=== PATIENT | female | born 1955 | race Hispanic/Latino ===

== ENCOUNTER 2018-10-26 19:39 | Observation (INO) | payer BC, OTHER ==
[~2018-10-26] VITALS: Ht 149.9 cm; Wt 95.8 kg
[2018-10-26 13:54] VITALS: BP 175/74
[~2018-10-26 19:39] MED LIST: AMBIEN5 MG PO; ATORVASTATIN CA20 MG PO; CENTRUM SILVER1 EAC3 PO; FLAGYL500 MG PO; LEVAQUIN500 MG PO; METAMUCIL PACK1 EACH PO; METFORMIN HCL500 MG PO; NFD30TCR PO; OMEGA-31000 MG PO; OMEPRAZOLE40 MG PO; POTASSIUM CHLO10 ME1 PO; PROTONIX40 MG PO; VITAMIN D3400 UNIT PO
[2018-10-26] MEDS ORDERED: ASPIRIN 81 MG CHEW TAB PO ONE (20:00)
[2018-10-26 20:25] LABS: BASOPHILS # (AUTO) 0.1 (0.0-0.1); BASOPHILS % 0.6 % (0.0-1.0); EOSINOPHILS # (AUTO) 0.2 (0.0-0.4); EOSINOPHILS % 2.3 % (0.0-6.0); HEMATOCRIT 33.7 % (34.2-44.1); HEMOGLOBIN 11.5 g/dL (12.0-16.0); LYMPHOCYTES # (AUTO) 3.1 (1.0-3.2); LYMPHOCYTES % 36.1 % (18.0-39.1); MEAN CORPUSCULAR HEMOGLOBIN 31.2 pg (28-32); MEAN CORPUSCULAR HGB CONC 34.1 g/dL (31-35); MEAN CORPUSCULAR VOLUME 91.3 fL (81-99); MONOCYTES # (AUTO) 0.5 (0.2-0.8); MONOCYTES % 5.5 % (4.4-11.3); NEUTROPHILS # (AUTO) 4.7 (2.1-6.9); NEUTROPHILS % 55.1 % (38.7-80.0); PLATELET COUNT 319 x10e3/uL (140-360); RED BLOOD COUNT 3.69 x10e6/uL (3.6-5.1); RED CELL DISTRIBUTION WIDTH 12.5 % (11.7-14.4)
[2018-10-26 20:29] LABS: INR 0.92; PARTIAL THROMBOPLASTIN TIME 25.6 seconds (23.8-35.5); PROTHROMBIN TIME 13.2 seconds (11.9-14.5)
[2018-10-26 20:40] LABS: ALANINE AMINOTRANSFERASE 16 IU/L (0-55); ALBUMIN 3.4 g/dL (3.5-5.0); ALBUMIN/GLOBULIN RATIO 0.9 (0.8-2.0); ALKALINE PHOSPHATASE 59 IU/L (40-150); ANION GAP 13.2 mmol/L (8-16); BLOOD UREA NITROGEN 25 mg/dL (7-26); BUN/CREATININE RATIO 28 (6-25); CALCIUM 9.3 mg/dL (8.4-10.2); CARBON DIOXIDE 26 mmol/L (22-29); CHLORIDE 103 mmol/L (98-107); CREATINE KINASE 33 IU/L (29-168); CREATININE, SERUM 0.88 mg/dL (0.57-1.11); EST GLOMERULAR FILTRATION RATE > 60 ML/MIN (60-); GLUCOSE 116 mg/dL (74-118); MAGNESIUM 1.3 MG/DL (1.3-2.1); POTASSIUM 4.2 mmol/L (3.5-5.1); SODIUM 138 mmol/L (136-145)
[2018-10-26 20:54] LABS: BILIRUBIN,URINE NEGATIVE (NEGATIVE); CLARITY,URINE CLEAR (CLEAR); COLOR,URINE YELLOW (YELLOW); KETONES,URINE NEGATIVE (NEGATIVE); LEUKOCYTE ESTERASE ,URINE NEGATIVE (NEGATIVE); NITRITE,URINE NEGATIVE (NEGATIVE); PROTEIN,URINE DIPSTICK 1+ (NEGATIVE); URINE UROBILINOGEN 0.2 mg/dL (0.2 - 1)
[2018-10-26] MEDS ORDERED: SODIUM CHLORIDE 0.9% 1000ML 1,000 ML IV STA (21:06)
[2018-10-26 21:10] LABS: EPITHELIAL CELLS,URINE FEW /LPF; WBC,URINE (MAN) 0-5 /HPF (0-5)
[2018-10-26] MEDS ORDERED: PANTOPRAZOLE 40 MG 10ML VIAL IV ONE (21:15)
--- NOTE | 2018-10-26 21:16 | Diagnostic Imaging Report ---
EXAM: CHEST SINGLE (PORTABLE), AP 1 view INDICATION: Chest pain COMPARISON: AP view of the chest January 29, 2015 FINDINGS: LINES/TUBES: None LUNGS: No consolidations or edema. PLEURA: No effusions or pneumothorax. HEART AND MEDIASTINUM: Normal size and contour. BONES AND SOFT TISSUES: No acute findings. IMPRESSION: No acute thoracic abnormality. Signed by: Dr. Ariela Jha M.D. on 10/26/2018 9:13 PM
[2018-10-26] MEDS ORDERED: ENOXAPARIN SODIUM INJ 100 MG/ML SYR SC ONE (22:00)
--- NOTE | 2018-10-26 22:03 | Diagnostic Imaging Report ---
EXAM: CT CHEST W INDICATION: Shortness of breath and positive d-dimer COMPARISON: None TECHNIQUE: Multidetector CT scanning of the chest was performed. Coronal and sagittal multiplanar reformations were obtained. Dose modulation, iterative reconstruction, and/or weight based adjustment of the mA/kV was utilized to reduce the radiation dose to as low as reasonably achievable. PE protocol performed. IV Contrast: 100 cc Isovue-370 CTDIvol has been reviewed. It is below the limits set by the Radiation Protocol Committee (RPC). FINDINGS: LUNGS AND AIRWAYS: The trachea and major bronchi are unremarkable. Bilateral mosaic attenuation of the lungs, most likely related to air trapping. At the medial aspect of the right lung base there is a 1.2 cm consolidation/nodule. PLEURA: No effusions or pneumothorax. HEART, MEDIASTINUM, VESSELS: Mild cardiac enlargement. No abnormal pericardial effusion. Atherosclerotic changes of the thoracic aorta without aneurysm. No mediastinal mass or lymphadenopathy. The main pulmonary artery is within normal size limits. No evidence of a pulmonary embolism. UPPER ABDOMEN: Cholecystectomy. MUSCULOSKELETAL: No acute findings. Severe degenerative changes of the left shoulder. IMPRESSION: 1. No evidence of a pulmonary embolism. 2. At the medial aspect of the right lung base there is an approximately 1.2 cm consolidation/sub-solid nodule. This is indeterminate for being from prior pneumonia or a potential cancer. A follow-up CT of the chest without IV contrast, low-dose protocol is recommended in 3 months if there are no prior CTs at an outside facility available for comparison. Signed by: Dr. Ariela Jha M.D. on 10/26/2018 10:00 PM
[2018-10-26] MEDS ORDERED: METOPROLOL TART50 MG PO (22:23)
[2018-10-26] MEDS ORDERED: ZOLPIDEM TARTRAT5 MG PO (22:23)
[2018-10-26] MEDS ORDERED: FAMOTIDINE 20 MG/2 ML VIAL IV SCH (23:00)
--- OUTSIDE RECORDS SUMMARY | 2018-10-26 23:51 | XMS REPORT ---
Author Author [facility] Address Unknown Phone Unavailable Care Team Providers Care Building Principal Name Role Phone Lexi JEFFREY Unavailable Unavailable Problems This patient has no known problems. Allergies, Adverse Reactions, Alerts This patient has no known allergies or adverse reactions. Medications This patient has no known medications. Results Test Description Test Time Test Comments Text Results Atomic Results Result Comments CT CHEST W 2018-10-26 21:50:00 [facility] [address] [address] Patient Name: NIKOS MOISE MR #: [id number] : 1955 Age/Sex: 62/F Req #: [id number] Adm Physician: Ordered by: RACHEL JEFFREY MD Report #: [id number] Location: ER Room/Bed: Procedure: [id number] CT/CT CHEST W Exam Date: 10/26/18 Exam Time: 2120 REPORT STATUS: Signed EXAM: CT CHEST W INDICATION: Shortness of breath and positive d- dimer COMPARISON: None TECHNIQUE: Multidetector CT scanning of the chest was performed. Coronal and sagittal multiplanar reformations were obtained. Dose modulation, iterative reconstruction, and/or weight based adjustment of the mA/kV was utilized to reduce the radiation dose to as low as reasonably achievable. PE protocol performed. IV Contrast: 100 cc Isovue-370 CTDIvol has been reviewed. It is below the limits set by the Radiation Protocol Committee (RPC). FINDINGS: LUNGS AND AIRWAYS: The trachea and major bronchi are unremarkable. Bilateral mosaic attenuation of the lungs, most likely related to air trapping. At the medial aspect of the right lung base there is a 1.2 cm consolidation/nodule. PLEURA: No effusions or pneumothorax. HEART, MEDIASTINUM, VESSELS: Mild cardiac enlargement. No abnormal pericardial effusion. Atherosclerotic changes of the thoracic aorta without aneurysm. No mediastinal mass or lymphadenopathy. The main pulmonary artery is within normal size limits. No evidence of a pulmonary embolism. UPPER ABDOMEN: Cholecystectomy. MUSCULOSKELETAL: No acute findings. Severe degenerative changes of the left shoulder. IMPRESSION: 1. No evidence of a pulmonary embolism. 2. At the medial aspect of the right lung base there is an approximately 1.2 cm consolidation/sub-solid nodule. This is indeterminate for being from prior pneumonia or a potential cancer. A follow- up CT of the chest without IV contrast, low-dose protocol is recommended in 3 months if there are no prior CTs at an outside facility available for comparison. Signed by: Dr. Marilu Be M.D. on 10/26/2018 10:00 PM Dictated By: MARILU BE MD 99 Transcribed By: MONROE on 10/26/182199 COPY TO: RACHEL JEFFREY MD CHEST SINGLE (PORTABLE) 2018-10-26 21:12:00 [address] [address] Patient Name: NIKOS MOISE MR #: [id number] : 1955 Age/Sex: 62/F Req #: [id number] Adm Physician: Ordered by: RACHEL JEFFREY MD Report #: [id number] Location: ER Room/Bed: Procedure: [id number] DX/CHEST SINGLE (PORTABLE) Exam Date: 10/26/18 Exam Time: 2010 REPORT STATUS: Signed EXAM: CHEST SINGLE (PORTABLE), AP 1 view INDICATION: Chest pain COMPARISON: AP view of the chest January 29, 2015 FINDINGS: LINES/TUBES: None LUNGS: No consolidations or edema. PLEURA: No effusions or pneumothorax. HEART AND MEDIASTINUM: Normal size and contour. BONES AND SOFT TISSUES: No acute findings. IMPRESSION: No acute thoracic abnormality. Signed by: Dr. Marilu Be M.D. on 10/26/2018 9:13 PM Dictated By: MARILU BE MD 12 Transcribed By: MONROE on 10/26/182112 COPY TO: RACHEL JEFFREY MD
[2018-10-27] VITALS (19 sets, daily range): BP systolic 142–192; BP diastolic 68–139
[2018-10-27] MEDS: ONDANSETRON HCL INJ 2 MG/ML VIAL IV PRN ×2 (01:43→18:03)
[2018-10-27] MEDS: MORPHINE SULFATE 2 MG/ML SYR IV PRN ×3 (01:50→23:17)
[2018-10-27] MEDS ORDERED: SODIUM CHLORIDE 0.9% 1000ML 1,000 ML IV SCH (04:45)
[2018-10-27 05:00] LABS: CHOL/HDL RATIO 6.4 (3.0-3.6)
[2018-10-27 05:23] LABS: CREATINE KINASE MB 0.6 ng/mL (0-5.0)
[2018-10-27] MEDS ORDERED: SODIUM CHLORIDE 0.9% 50ML 50 ML ONE ×2 (07:04→19:06)
[2018-10-27] MEDS ORDERED: IOPAMIDOL 370 MG/ML 200 ML INFUS..BTL INJ ONE ×3 (07:04→19:01)
[2018-10-27] MEDS ORDERED: DEXTROSE 50% SYRINGE 50 ML IV PRN (07:15)
[2018-10-27] MEDS: INSULIN LISPRO 100 UNIT/1 ML 3ML VIAL SQ SCH ×4 (07:56→22:20)
[2018-10-27] MEDS ORDERED: ASPIRIN 81 MG ENTERIC COATED PO SCH (09:00)
[2018-10-27] MEDS ORDERED: METOPROLOL SUCCINATE 50 MG TAB XL PO NR (11:45)
[2018-10-27] MEDS: SODIUM CHLORIDE 0.9% 1000ML 1,000 ML IV SCH ×3 (13:32→21:00)
[2018-10-27] MEDS: PANTOPRAZOLE SODIUM 40 MG SUSPDR.PKT PO SCH ×2 (13:33→15:21)
--- NOTE | 2018-10-27 13:58 | Consultation ---
DATE OF CONSULTATION: October 27, 2018 REASON FOR CONSULTATION: Chest pain. This is a 62-year-old female with a history of diabetes, hypertension, reflux, and insomnia. Patient presents to Patients ER with complaints of chest pain times 1 week. However, on Tuesday the chest pain became constant, pressure in nature with some shortness of breath. Cardiology was consulted to evaluate the patient. Patient was seen in the ER. Reports the chest pain started about a week ago when she was on vacation and states that it is pressure sensation, worse with exertion. However, on Tuesday reports chest pain became constant pressure worse with deep breathing. Therefore, came to the ER for further evaluation. Initial enzymes negative times 2. EKG sinus rhythm with right bundle branch block. CT was done PE protocol, which was negative. Echo has been ordered and is pending. Of note, the patient had a heart cath several years ago with normal coronaries. Patient is very concerned and is wanting further evaluation given her strong family history of heart disease. PAST MEDICAL HISTORY: Diabetes, hypertension, GERD, and insomnia. SURGICAL HISTORY: Hysterectomy, cholecystectomy, umbilical hernia, appendectomy. FAMILY HISTORY: Mother at age 92 apparently with uterine cancer. Father in his 50s apparently from [place]. SOCIAL HISTORY: She is . She has 2 children. Reports they are healthy. No alcohol use. No tobacco use. HOME MEDICATIONS 1. Protonix 40 mg once a day. 2. Metformin 500 mg t.i.d. 3. Ambien p.r.n. 4. Nifedipine 30 mg once a day. ALLERGIES: LISINOPRIL. REVIEW OF SYSTEMS GENERAL: Denies any weight changes, any fevers, chills, night sweats, or any skin contacts. SKIN: No rashes or sores. HEENT: No nausea, vomiting, vision changes, blurred vision, double vision, tinnitus, earaches, epistaxis. CARDIAC: Positive for chest pain. Positive for dyspnea on exertion worsening of several days. Denies any orthopnea, PND, intermittent lower extremity edema. RESPIRATORY: Positive shortness of breath. No hemoptysis. GI: Good appetite. No nausea. No vomiting. No diarrhea. No constipation. Denies any melena or hematochezia. URINARY: Denies any frequency, urgency, nocturia, or dysuria. VASCULAR: Reports intermittent lower extremity edema, left greater than right. Denies any claudication also. MUSCULOSKELETAL: Denies any back pain. However, generalized joint pains. NEUROLOGIC: Denies any tingling, tremors, paralysis, blackouts, seizures. HEMATOLOGY: Denies anemia, any bruising. ENDOCRINE: Denies any heat or cold intolerance, any polyuria, polydipsia, or polyphagia. PHYSICAL EXAMINATION VITALS: Height 59 inches, weight 208 pounds. BMI 42. Vital signs currently are heart rate 70, temperature 98.4, respiratory rate 18, blood pressure 126/50, pulse ox 100%, on room air. GENERAL: Appears stated age and reliable informant. In no acute distress. SKIN: No rashes or bruises noted. HEENT: Normocephalic. Pupils are equal and reactive. Extraocular motor intact. Trachea midline. No thyromegaly noted. No JVD. No carotid bruits. Oral mucosa pink. HEART: Regular rate and rhythm. LUNGS: Bilateral breath sounds clear to auscultation. ABDOMEN: Soft, nontender and nondistended. No organomegaly. However, the patient is very obese. EXTREMITIES: Muscle tone and good muscle strength throughout. VASCULAR: Plus 2 bilateral radial pulses and +1 DP and PT pulses bilaterally. NEUROLOGIC: Cranial nerves II-XII seem intact. LABS: Hemoglobin 11, hematocrit 33 and platelets 319,000. Sodium 138, potassium 4.2, chloride 103, BUN 25, creatinine 0.8. Troponin 0.036, next 0.018. BNP 98. EKG is normal sinus rhythm with right bundle branch block. Chest x-ray with no PE. However, showing a right lower lung base 1.2-cm nodule. Chest x-ray with no acute abnormalities noted. ASSESSMENT AND PLAN 1. Chest pain. 2. Pulmonary nodule. 3. Diabetes. 4. Obesity. 5. Hyperlipidemia. PLAN: The patient presents with chest pain for about a week. Now, reports it is constant with mixed features. Enzymes negative times 2 thus far and EKG without any acute changes suggestive of acute event. The patient is requesting further evaluation. Patient very concerned. Will proceed with a stress test to evaluate further. has been ordered and will be reviewed by cardiology attending. The patient is aware of the CT report and copy has been given to the patient in which she was advised to follow up as recommended. Continue home medications. Further recommendations as clinical course dictates. Thank you very much for this consult. DICTATED BY TRACY STAUFFER NP Seen and evaluated Agree with note Since enzymes are negative , we will do stress test Stress test is positive with chest pain at 2 minutes of excercise ===> will schedule cardiac cath / PCI, Job#: [id number] RI MTDD
[2018-10-27] MEDS ORDERED: HEPARIN SOD/SOD CHLORIDE 2,000 ML ONE (17:54)
[2018-10-27] MEDS ORDERED: LIDOCAINE HCL 2% LOCAL 20 ML VIAL ONE (17:54)
[2018-10-27] MEDS ORDERED: MIDAZOLAM HCL 2 MG/2 ML VIAL ONE (18:03)
[2018-10-27] MEDS ORDERED: FENTANYL CITRATE/PF 100MCG/2 ML INJ ONE (18:03)
[2018-10-27] MEDS ORDERED: VERAPAMIL HCL 2.5 MG/ML 2 ML VIAL ONE (18:36)
[2018-10-27] MEDS ORDERED: BIVALRIUDIN 250 MG/VIAL VIAL IV ONE (19:06)
[2018-10-27] MEDS ORDERED: CLOPIDOGREL BISULFATE 75 MG TAB ONE (19:07)
[2018-10-27] MEDS ORDERED: ASPIRIN 325 MG TAB ONE (19:07)
[2018-10-27] MEDS ORDERED: HYDRALAZINE HCL 20 MG/ML VIAL ONE (19:23)
[2018-10-27] MEDS ORDERED: EPTIFIBATIDE 20 ML ONE (19:31)
[2018-10-27] MEDS ORDERED: EPTIFIBATIDE 100 ML ONE (19:34)
[2018-10-27] MEDS ORDERED: ONDANSETRON HCL INJ 2 MG/ML VIAL IV PRN (20:15)
[2018-10-27] MEDS ORDERED: ACETAMINOPHEN 325 MG TAB PO PRN (20:15)
[2018-10-27] MEDS ORDERED: EPTIFIBATIDE 100 ML IV ONE (20:15)
[2018-10-27] MEDS ORDERED: CLONIDINE HCL 0.1 MG TAB PO PRN (20:15)
[2018-10-27] MEDS ORDERED: EPTIFIBATIDE 2 MG/1 ML 10ML VIAL IV ONE (20:15)
[2018-10-27] MEDS ORDERED: HYDROCODONE/APAP 5MG-325MG TAB PO PRN (20:15)
[2018-10-27] MEDS ORDERED: PROMETHAZINE 12.5MG/ NACL 0.9% 12.5 MG/50 ML BAG IV PRN (20:45)
[2018-10-27] MEDS ORDERED: NON-FORMULARY MEDICATION (Zolpidem Tartrate 5 MG) PO SCH (21:00)
[2018-10-27] MEDS ORDERED: ATORVASTATIN 20 MG TAB PO SCH ×2 (21:00)
[2018-10-27] MEDS ORDERED: ZOLPIDEM TARTRATE 5 MG TAB PO SCH (21:00)
--- NOTE | 2018-10-27 22:29 | Cardiology Report ---
DATE OF STUDY: October 27, 2018 EXERCISE TREADMILL STRESS TEST INDICATION FOR STUDY: Chest pain, escalating symptoms concerning for perhaps unstable angina. TECHNICAL DETAILS: After risks, benefits, pros and cons of today's exercise treadmill stress test were explained to the patient, the patient agreed to proceed. Patient was brought to the stress lab where 12-lead EKG monitoring and blood pressure monitoring were obtained. She exercised on a Daniel protocol for a total duration of 1 minute and 50 seconds and had to be terminated sub-max due to severe onset of chest pain, pressure similar to presenting complaint. Underlying EKG revealed normal sinus rhythm, right bundle branch block, and heart rate increased from a baseline of 79 beats per minute to a maximum of 98 beats per minute well below our target heart rate goal. Blood pressure was only obtained at baseline, which was noted to be 126/78. Repeat blood pressure was not done during exercise. At the end of stress test, patient had borderline ST depressions in V5-V6 and again intense chest pain typical of angina. CONCLUSION 1. Abnormal exercise treadmill stress test, sub-max protocol, with the development of typical chest pain symptoms concerning for angina, which brought her into the hospital. 2. Borderline ischemic EKG changes and a very sub-max stress test. 3. In light of high risk features, we will proceed with cardiac catheterization. Job#: [id number] DIVYA
[2018-10-28] VITALS (38 sets, daily range): BP systolic 87–169; BP diastolic 57–93
--- NOTE | 2018-10-28 02:59 | Operative Report ---
DATE OF PROCEDURE: CARDIAC CATHETERIZATION INTERVENTION PROCEDURES PERFORMED 1. Left heart cardiac catheterization with coronary angiography. 2. Percutaneous coronary intervention with drug-eluting stent placement to the prox-mid LAD culprit lesion. INDICATION FOR PROCEDURE: A 62-year-old morbidly obese lady who presents to this institution with chest pain symptoms concerning for unstable angina. She underwent exercise treadmill stress test and was significantly positive and very sub-max protocol with poor exercise tolerance and hence a high risk stress test. We decided to proceed for definite ischemic evaluation. DESCRIPTION OF PROCEDURE: After risks, benefits, pros and cons of today's procedure were explained, patient agreed to proceed. Patient was brought to the cardiac catheterization laboratory, where the right wrist was prepped and draped in the usual sterile fashion. Lidocaine solution 1% was used to numb the right wrist region. Access to the right radial artery was obtained and a long 5-Pakistani Terumo Glidesheath was placed. After the sheath was placed, we gave intra-arterial verapamil 2.5 mg and nitroglycerin 200 mcg through the sheath and 3000 units of intra-arterial heparin was given. Selective coronary angiography of the citizen [place] left and right coronary arteries was performed with 5-Pakistani Jose 4.0 diagnostic catheter. This revealed a short left main, dual origin LAD and circumflex artery with a posterior takeoff and there was interestingly a 70% to 80% hazy prox-mid LAD stenosis concerning for acute thrombotic stenosis and clear cut culprit artery. We decided to proceed with intervention. A 5-Pakistani radial sheath was upsized to a 6-Pakistani slender radial sheath. IV Angiomax bolus was given for systemic anticoagulation, patient was loaded with aspirin and Plavix and Integrilin boluses were given as well. We went ahead with a 6-Pakistani XP 3.5 LAD guiding catheter and selected the LAD artery. Utilizing a 300 cm [place] XT Guidewire was successfully crossed into the apical all the way into the distal LAD well passed the lesion. We went in with a direct stenting strategy with a Synergy 3.0 x 20 mm drug-eluting stent. We deployed up to 17 atmospheres of pressure. Final angiography revealed 0% residual stenosis NOLA III flow and no complications. At the conclusion of the case, the guiding catheter was removed with a J-wire and a Terumo TR band was successfully deployed utilizing patent hemostasis technique and a total of 14 mL of air was placed. COMPLICATIONS: None. ESTIMATED BLOOD LOSS: Minimal. FINDINGS 1. Left main is very short, gives rise to an LAD and circumflex branch and is angiographically normal. 2. LAD has a long hazy 70% to 80% prox-mid stenosis which terminates into a bifurcating LAD diagonal and first septal sfdc architect branch. The remainder of this vessel and its branches with just mild luminal irregularities. 3. Left circumflex artery is a large codominant, gives rise to a large anterolateral marginal branch, two moderate caliber marginal branches and a large posterolateral/left PDA branch. This vessel and its branches were with just mild luminal irregularities. 4. RCA is dominant, has a little anterior takeoff, gives rise to a right PDA and right PLV branch. There was a 40% mid RCA stenosis. INTERVENTION SUMMARY: Successful treatment of the 70% to 80% hazy prox-mid LAD thrombotic lesion with implantation of a Synergy 3.0 x 20 drug-eluting stent resulting in 0% residual stenosis NOLA III flow and no complications. PLAN/RECOMMENDATIONS 1. Aspirin and Plavix therapy. 2. Statin therapy. 3. Recommend just aggressive risk-factor modification medical therapy. 4. Integrilin infusion. 1. Removal of TR band in approximately 2 hours. Job#: [id number] VAS
[2018-10-28 04:56] LABS: BASOPHILS # (AUTO) 0.1 (0.0-0.1); BASOPHILS % 0.6 % (0.0-1.0); EOSINOPHILS # (AUTO) 0.2 (0.0-0.4); EOSINOPHILS % 1.8 % (0.0-6.0); HEMATOCRIT 29.8 % (34.2-44.1); HEMOGLOBIN 10.1 g/dL (12.0-16.0); LYMPHOCYTES # (AUTO) 2.2 (1.0-3.2); LYMPHOCYTES % 26.2 % (18.0-39.1); MEAN CORPUSCULAR HEMOGLOBIN 31.5 pg (28-32); MEAN CORPUSCULAR HGB CONC 33.9 g/dL (31-35); MEAN CORPUSCULAR VOLUME 92.8 fL (81-99); MONOCYTES # (AUTO) 0.5 (0.2-0.8); MONOCYTES % 5.6 % (4.4-11.3); NEUTROPHILS # (AUTO) 5.4 (2.1-6.9); NEUTROPHILS % 65.3 % (38.7-80.0); PLATELET COUNT 264 x10e3/uL (140-360); RED BLOOD COUNT 3.21 x10e6/uL (3.6-5.1); RED CELL DISTRIBUTION WIDTH 12.6 % (11.7-14.4)
[2018-10-28 05:30] LABS: ALANINE AMINOTRANSFERASE 14 IU/L (0-55); ALBUMIN/GLOBULIN RATIO 0.9 (0.8-2.0); ALKALINE PHOSPHATASE 55 IU/L (40-150); BLOOD UREA NITROGEN 16 mg/dL (7-26); BUN/CREATININE RATIO 22 (6-25); CALCIUM 8.3 mg/dL (8.4-10.2); CARBON DIOXIDE 24 mmol/L (22-29); CHLORIDE 109 mmol/L (98-107); CREATININE, SERUM 0.72 mg/dL (0.57-1.11); EST GLOMERULAR FILTRATION RATE > 60 ML/MIN (60-); GLUCOSE 106 mg/dL (74-118); SODIUM 140 mmol/L (136-145)
[2018-10-28] MEDS: SODIUM CHLORIDE 0.9% 1000ML 1,000 ML IV SCH (06:05)
[2018-10-28] MEDS: INSULIN LISPRO 100 UNIT/1 ML 3ML VIAL SQ SCH ×2 (07:30→11:30)
[2018-10-28] MEDS ORDERED: PANTOPRAZOLE SODIUM 40 MG SUSPDR.PKT PO SCH (07:30)
[2018-10-28] MEDS: PANTOPRAZOLE SODIUM 40 MG SUSPDR.PKT PO SCH (08:01)
[2018-10-28] MEDS ORDERED: METOPROLOL TARTRATE 50 MG TAB PO SCH (09:00)
[2018-10-28] MEDS ORDERED: CLOPIDOGREL BISULFATE 75 MG TAB PO SCH (09:00)
[2018-10-28] MEDS ORDERED: METOPROLOL SUCCINATE 50 MG TAB XL PO SCH (09:00)
[2018-10-28] MEDS ORDERED: ASPIRIN 325 MG TAB PO SCH (09:00)
[2018-10-28] MEDS ORDERED: CLOPIDOGREL75 MG PO (09:55)
[2018-10-28] MEDS ORDERED: METOPROLOL TART50 MG PO (09:55)
[2018-10-28] MEDS ORDERED: ATORVASTATIN CA20 MG PO (09:55)
[2018-10-28] MEDS ORDERED: ASPIRIN81 MG PO (09:55)
[2018-10-28] MEDS ORDERED: POTASSIUM CHLORIDE 20 MEQ TAB CR PO SCH (12:00)
--- NOTE | 2018-10-28 13:12 | Discharge Summary ---
PRIMARY CARE DOCTOR: Dr. Grzegorz Mahmood with [facility]. FINAL DIAGNOSIS: Unstable angina with coronary artery disease. SECONDARY DIAGNOSES 1. Diabetes. 2. Lung nodule. 3. Morbid obesity. 4. Hypertriglyceridemia with triglyceride of 240. AGRICULTURAL ECONOMIST: Dr. Mancia, cardiology. PROCEDURES/STUDIES PERFORMED CT of the chest with IV contrast. Stress test. Echocardiogram. Left heart cath. HISTORY: Per [facility] HOSPITAL COURSE: Patient was admitted. CT scan was done, which was negative for PE. However, there is a 1.2 mm nodule. I have printed the report out and she supposed to give it to her primary care doctor for followup. The recommendation is to repeat another CAT scan in 3 months. Patient did not have an acute myocardial infarction. Her troponins were negative. Patient underwent stress test, which was normal; therefore subsequently, patient underwent left heart cath through her right radial artery. A drug-eluting stent was placed in her LAD. Patient is to go home today on aspirin, Plavix, metoprolol, and Lipitor. Patient will follow up with her PCP in 1 week. I have updated her PCP about this hospitalization. Patient was seen and examined today. It took 32 minutes total to discharge this patient. CONDITION ON DISCHARGE: Stable. DISCHARGE MEDICATIONS: Please see medication reconciliation form. SAMANTHA MCKEON M.D. Job#: [id number] SEVEN cc:GRZEGORZ MAHMOOD MD
[2018-10-28] MEDS ORDERED: AMIODARONE HCL 200 MG TAB PO SCH (17:00)
== END 2018-10-28 14:26 | disposition home or self-care (01) ==
LOC: ER 19:39 → ERHOLD 23:00 → IMCU 10-27 13:55 → ICU 10-27 20:34
PROVIDERS: ADMIT Internal Medicine; ATTEND Internal Medicine
DX: I25.110 Atherosclerotic heart disease of native coronary artery with unstable angina pectoris (principal); I34.0 Nonrheumatic mitral (valve) insufficiency; I07.1 Rheumatic tricuspid insufficiency; I37.1 Nonrheumatic pulmonary valve insufficiency; I10 Essential (primary) hypertension; R91.1 Solitary pulmonary nodule; K21.9 Gastro-esophageal reflux disease without esophagitis; E11.9 Type 2 diabetes mellitus without complications; Z79.84 Long term (current) use of oral hypoglycemic drugs; E78.1 Pure hyperglyceridemia; E66.01 Morbid (severe) obesity due to excess calories; Z68.41 Body mass index [BMI] 40.0-44.9, adult; G47.00 Insomnia, unspecified; E78.5 Hyperlipidemia, unspecified; Z79.02 Long term (current) use of antithrombotics/antiplatelets; Z88.8 Allergy status to other drugs, medicaments and biological substances
CPT/HCPCS: 36415 ×3; 71045; 71260; 80053 ×2; 80061; 81001; 82550 ×2; 82553 ×2; 82948 ×2; 83735; 83880; 84484 ×2; 85025 ×2; 85379; 85610; 85730; 87086; 92928; 93005; 93017; 93306; 93458; 96372; 99284; C1769; C1874; G0378 ×3; J0360; J0583; J1327 ×2; J1650; J2001; J2250; J2270; J2405; J2550; J7030 ×3; Q9967

== ENCOUNTER → 2022-01-29 | Outpatient (CLI) | payer MEDICARE ==
[~2022-01-29] MED LIST changes: +ASPIRIN81 MG PO; +CLOPIDOGREL75 MG PO; +METOPROLOL TART50 MG PO; +ZOLPIDEM TARTRAT5 MG PO
== END ==
LOC: MAMMO 08:43
PROVIDERS: ATTEND Family Medicine
DX: Z12.31 Encounter for screening mammogram for malignant neoplasm of breast (principal)
CPT/HCPCS: 77067

== ENCOUNTER 2024-08-26 16:30 | Emergency (ER) | payer MEDICARE ==
[~2024-08-26] VITALS: Ht 144.8 cm; Wt 90.7 kg
[2024-08-26 16:49] VITALS: TEMP 98.1
[2024-08-26] MEDS ORDERED: ROSUVASTATIN CA20 MG (17:17)
[2024-08-26] MEDS ORDERED: POTASSIUM99 M2 (17:17)
[2024-08-26] MEDS ORDERED: OMEGA 3-6-9 11200 M1 (17:17)
[2024-08-26] MEDS ORDERED: LOSARTAN POTASS25 MG PO (17:17)
[2024-08-26] MEDS ORDERED: COQ1050 MG PO (17:17)
[2024-08-26] MEDS ORDERED: AMLODIPINE BESYL5 MG PO (17:17)
[2024-08-26] MEDS ORDERED: MAGNESIUM OXID400 MG PO (17:17)
[2024-08-26] MEDS ORDERED: RYBELSUS3 MG (17:17)
[2024-08-26] MEDS ORDERED: CENTRUM ADULTS1 EACH PO (17:17)
[2024-08-26 18:18] VITALS: PULSE 66; RESP 18
[2024-08-26] MEDS ORDERED: ZITHROMAX250 MG PO (19:00)
[2024-08-26] MEDS ORDERED: CODEINE-GUAIFE120 ML PO (19:02)
[2024-08-26 20:19] VITALS: BP 129/84; PULSE 74; RESP 18; TEMP 98.3; O2SAT 99
== END 2024-08-26 19:25 | disposition home or self-care (01) ==
LOC: FSED 16:48
DX: R05.9 Cough, unspecified (principal); J18.9 Pneumonia, unspecified organism; I10 Essential (primary) hypertension; E11.65 Type 2 diabetes mellitus with hyperglycemia; K21.9 Gastro-esophageal reflux disease without esophagitis; G47.00 Insomnia, unspecified; Z11.52 Encounter for screening for COVID-19
CPT/HCPCS: 0223U; 71046; 87400; 99284

== ENCOUNTER → 2024-09-11 | Outpatient (REF) | payer MEDICARE ==
[~2024-09-11] MED LIST changes: +AMLODIPINE BESYL5 MG PO; +CENTRUM ADULTS1 EACH PO; +CODEINE-GUAIFE120 ML PO; +COQ1050 MG PO; +IOPAMIDOL 370 MG/ML 100 ML INFUS..BTL INJ ONE; +LOSARTAN POTASS25 MG PO; +MAGNESIUM OXID400 MG PO; +OMEGA 3-6-9 11200 M1; +POTASSIUM99 M2; +ROSUVASTATIN CA20 MG; +RYBELSUS3 MG; +ZITHROMAX250 MG PO
[2024-09-11 15:39] LABS: CREATININE, SERUM 0.82 mg/dL (0.57-1.11)
== END ==
LOC: CT 15:01
PROVIDERS: ATTEND Family Medicine
DX: R07.9 Chest pain, unspecified (principal); J18.9 Pneumonia, unspecified organism; R93.89 Abnormal findings on diagnostic imaging of other specified body structures
CPT/HCPCS: 36415; 71260; 82565; 84520; Q9967

== ENCOUNTER → 2024-09-19 | Outpatient (REF) | payer MEDICARE ==
[~2024-09-19] MED LIST changes: -IOPAMIDOL 370 MG/ML 100 ML INFUS..BTL INJ ONE
== END ==
LOC: MAMMO 08:39
PROVIDERS: ATTEND Family Medicine
DX: N63.10 Unspecified lump in the right breast, unspecified quadrant (principal)
CPT/HCPCS: 77066

== ENCOUNTER 2025-03-10 17:55 | Emergency (ER) | payer MEDICARE ==
[~2025-03-10] VITALS: Ht 149.9 cm; Wt 87.5 kg
[2025-03-10 18:10] VITALS: TEMP 99.3
[2025-03-10] MEDS: ONDANSETRON HCL INJ 2MG/ML 2ML 2 MG/ML VIAL IV STA ×2 (18:40→22:46)
[2025-03-10] MEDS: SODIUM CHLORIDE 0.9% 1000ML 1,000 ML IV ONE (18:40)
[2025-03-10] MEDS: HYDROCODONE/APAP 5MG-325MG TAB PO ONE (19:33)
[2025-03-10] MEDS ORDERED: IOPAMIDOL 370 MG/ML 100 ML INFUS..BTL INJ ONE (21:58)
[2025-03-10 22:50] VITALS: PULSE 73; RESP 18
[2025-03-10] MEDS ORDERED: ONDANSETRON ODT4 MG PO (23:19)
[2025-03-10 23:29] VITALS: BP 142/65; O2SAT 95
== END 2025-03-10 23:32 | disposition home or self-care (01) ==
LOC: FSED 18:05
DX: R11.2 Nausea with vomiting, unspecified (principal); B34.9 Viral infection, unspecified; I10 Essential (primary) hypertension; E11.65 Type 2 diabetes mellitus with hyperglycemia; K21.9 Gastro-esophageal reflux disease without esophagitis; G47.33 Obstructive sleep apnea (adult) (pediatric); G47.00 Insomnia, unspecified; Z11.52 Encounter for screening for COVID-19; R94.31 Abnormal electrocardiogram [ECG] [EKG]; Z95.5 Presence of coronary angioplasty implant and graft
CPT/HCPCS: 0223U; 71045; 74018; 74177; 80048; 80076; 81003; 84484; 85025; 87400; 93005; 99284; J2405; J7030; Q9967